=== PATIENT | male | born 1965 ===

== ENCOUNTER 2018-09-13 09:18 | Outpatient (CLI) | payer OTHER | END 2018-09-13 09:19 | disposition home or self-care (01) | LOC: C.LAB 09:18 | DX: R31.29 Other microscopic hematuria (principal) ==

== ENCOUNTER 2018-09-18 09:57 | Outpatient (CLI) | payer OTHER | END 2018-09-18 09:58 | disposition home or self-care (01) | LOC: C.CTH 09:57 ==